=== PATIENT | female | born 1970 | race Caucasian/White ===

== ENCOUNTER 2021-01-13 05:42 | Emergency (ER) | payer BC ==
[2021-01-13 05:56] VITALS: BP 140/87; PULSE 75; TEMP 98.1
[2021-01-13] MEDS ORDERED: ACETAMINOPHEN 325 MG TABLET (FP) PO ONE (06:34)
[2021-01-13] MEDS ORDERED: DIPHTH,PERTUSS(ACELL),TET 0.5 ML DISP.SYRIN IM ONE ×2 (06:36→07:20)
[2021-01-13] MEDS ORDERED: ACETAMINOPHEN 325 MG TABLET (FP) ONE (07:19)
== END 2021-01-13 10:45 | disposition home or self-care (01) ==
LOC: JER 05:42
PROC: 0HQ1XZZ Repair Face Skin, External Approach (ICD-10-PCS; principal; 2021-01-13)
PROC: 3E0234Z Introduction of Serum, Toxoid and Vaccine into Muscle, Percutaneous Approach (ICD-10-PCS; 2021-01-13)
DX: S01.81XA Laceration without foreign body of other part of head, initial encounter (principal); W18.2XXA Fall in (into) shower or empty bathtub, initial encounter
CPT/HCPCS: 70450-TC; 70486-TC; 72125-TC; 90715; 99284-25